=== PATIENT | male | born 1970 | race Caucasian/White ===

== ENCOUNTER 2018-11-10 05:35 | Day surgery (SDC) | payer BC, MEDICAID ==
[2018-11-10] MEDS ORDERED: Dextrose 5%-Lactated Ringers 1,000 ML IV SCH (05:45)
[2018-11-10] MEDS ORDERED: Propofol 200 MG/20 ML SDV ONE (07:11)
[2018-11-10] MEDS ORDERED: fentaNYL 100 MCG/2 ML SDV ONE (07:11)
[2018-11-10] MEDS ORDERED: Midazolam 1 MG/ML 2 ML SDV ONE (07:11)
[2018-11-10 09:18] VITALS: BP 119/81; PULSE 79
--- NOTE | 2018-11-15 15:13 | OR ---
DATE OF PROCEDURE: 11/10/2018 SURGEON: Rios Pedroza MD PREOPERATIVE DIAGNOSIS: Recent rectal bleeding. POSTOPERATIVE DIAGNOSIS: Recent rectal bleeding, likely associated with excoriated hemorrhoids. PROCEDURE: Flexible colonoscopy. ANESTHESIA: IV sedation. INDICATION FOR PROCEDURE: This is a 47-year-old presenting with some recent episodes of some rectal bleeding that did occur after moving his bowels. Plan is to proceed with a flexible colonoscopy with biopsies and/or polypectomy as indicated. Potential risks including bleeding and perforation were discussed, and the patient wishes to proceed. PROCEDURE IN DETAIL: The patient was taken to the operating room, placed in a left lateral decubitus position. IV sedation was administered, after which the initial digital rectal exam was performed and was unremarkable. Colonoscope was then passed to the level of the cecum. The prep was fairly good. There was only a small amount of liquid stool present. Upon initial examination of the inguinal canal and lower rectum, the patient was noted to have some excoriated-appearing hemorrhoids. These were not actively bleeding. However, the remainder of exam was entirely normal. There was no evidence of diverticular disease. No evident colitis. No polyps or other signs of neoplasia. The scope was then withdrawn and the procedure was then concluded. The patient was taken to the recovery room in satisfactory condition. The patient otherwise has no personal or family history of colonic neoplasia, and as long as no additional problems are noted, the next colonoscopy should be in general scheduled for 10 years. Rios Pedroza MD /[id number]
== END 2018-11-10 09:00 | disposition home or self-care (01) ==
LOC: JP.SDS 05:35
PROVIDERS: ATTEND Surgery
DX: K62.5 Hemorrhage of anus and rectum (principal); K64.9 Unspecified hemorrhoids; I10 Essential (primary) hypertension
CPT/HCPCS: 45378; J2250; J2704; J3010; J7042